=== PATIENT | male | born 1995 | race Caucasian/White ===

== ENCOUNTER 2021-04-30 18:56 | Emergency (ER) | payer OTHER, SELFPAY ==
[2021-04-30 19:10] VITALS: BP 127/82; PULSE 81; RESP 16; TEMP 37.1; O2SAT 99
--- NOTE | 2021-04-30 19:39 | ED.MALEGU ---
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 Patient states his last unprotected intercourse was about a half a month ago; his partner informed him that she has trichomoniasis. No rash, discharge, frequency/urgency, but he mentions some occasional left testicle discomfort. He declines injectable/parenteral antibiotics Related Data Home Medications Medication Instructions Recorded Confirmed epinephrine 0.3 mg IM PRN PRN 04/30/21 04/30/21 Allergies Allergy/AdvReac Type Severity Reaction Status Date / Time mushroom Allergy Severe Anaphylaxis Verified 04/30/21 19:25 morphine Allergy Intermediate Chills Verified 04/30/21 19:25 Review of Systems Review of Systems: General/Constitutional: No weight loss,fever Eyes: N0: Redness,discharge Ears/Nose/Throat: No: Epistaxis,ear discharge Respiratory: Denies: Hemoptysis Gastrointestinal: No Vomiting, Bleeding-rectal Skin: No Lumps, eruption Neurologic: No Focal Weakness,Sz Hematologic: Denies: Petechiae/Purpura Psychiatric: No: Suicida ideationl All Other Systems: Reviewed and Negative PMFSH Comments At time of signature, agree with nursing past medical, surgical, social and family history. There is no relevant family history pertinent to the presenting complaint Exam Narrative: General Appearance: Well appearing, conjunctiva clear Mouth/Throat: Normal appearing, Normal lips, Supple Respiratory: Airway patent, No respiratory distress Cardiovascular: RRR GI/ : Soft, Non-tender, No massess, No organomegaly No inguinal hernia, bilateral descended testis, circumcised phallus, Musculoskeletal: Full ROM Skin: Warm, Dry Neurological: A&O x3, Normal affect Course Vital Signs Vital signs: Vital Signs Temperature 98.7 F 04/30/21 19:10 Pulse Rate 81 04/30/21 19:10 Respiratory Rate 16 04/30/21 19:10 Blood Pressure 127/82 04/30/21 19:10 Pulse Oximetry 99 04/30/21 19:10 Temperature 98.7 F 04/30/21 19:10 Pulse Rate 81 04/30/21 19:10 Respiratory Rate 16 04/30/21 19:10 Blood Pressure 127/82 04/30/21 19:10 Pulse Oximetry 99 04/30/21 19:10 MDM - Male Genitourinary Lab Data Labs: Lab Results 04/30/21 04/30/21 Range/Units 19:17 19:17 C.trachomatis RNA (TMA) Pending N.gonorrhoeae RNA (TMA) Pending T. vaginalis Amp RNA Pending Urine Glucose Negative Reference Range: Negative Urine Glucose Negative Reference Range: Negative Urine Bilirubin Negative Reference Range: Negative Urine Bilirubin Negative Reference Range: Negative Urine Ketone Negative Reference Range: Negative Urine Ketone Negative Reference Range: Negative Urine Specific [place] 1.025 Reference Range:1.001-1.035 Urine Specific [place] 1.025 Reference Range:1.001-1.035 Urine Blood Trace Reference Range: Negative * * Urine pH 7.0 Reference Range: 5.0-9.0 Urine pH 7.0 Reference Range: 5
== END 2021-04-30 19:45 | disposition home or self-care (01) ==
PROVIDERS: Emergency Provider Emergency Medicine; PCP Family Medicine
DX: Z20.2 Contact with and (suspected) exposure to infections with a predominantly sexual mode of transmission (principal)
CPT/HCPCS: 81003; 87491; 87591; 87661; 99213; G0463